=== PATIENT | male | born 1965 | race Caucasian/White ===

== ENCOUNTER → 2021-08-20 10:31 | Outpatient (BNVA) | payer MEDICARE, SELFPAY | PROVIDERS: Visit Provider Surgery | DX: Z20.822 Contact with and (suspected) exposure to COVID-19 (principal); Z11.52 Encounter for screening for COVID-19 | CPT/HCPCS: 87635 ==

== ENCOUNTER 2021-08-23 08:46 | Day surgery (SDC) | payer MEDICARE, SELFPAY ==
[2021-08-22 10:46] VITALS: BMI 24.9
[2021-08-23] VITALS (8 sets, daily range): BP systolic 125–147; BP diastolic 73–93; PULSE 51–83; RESP 14–18; TEMP 36.1–36.7; O2SAT 94–100
--- NOTE | 2021-08-23 09:17 | W.PM.OPSUD ---
Surgery/Procedure H&P Update DATE OF PROCEDURE: August 23, 2021 DATE H&P PERFORMED: 08/14/21 H&P UPDATE INFORMATION: I have reviewed H&P completed within last 30 days, I have examined patient prior to procedure and No changes to prior documentation PLANNED PROCEDURE: Operation Date: 08/23/21 10:10 Proposed Procedures p Laparoscopic poss Open Inguinal Hernia Repair [id number] K40.90(Not Applicable) - Anthony Casanova MD
[2021-08-23] MEDS: sodium chloride 0.9% 1,000 ML 30 ML IV (09:54)
--- NOTE | 2021-08-23 09:56 | ANES.PREANE2 ---
Pre-Anesthetic Assessment Pre-Anesthetic Assessment: Height/Weight: Height 1.73 m Weight 74.389 kg Temp Pulse Resp BP Pulse Ox 97.8 F 83 18 125/82 98 08/23/21 09:29 08/23/21 09:29 08/23/21 09:29 08/23/21 09:29 08/23/21 09:29 Preop Diagnosis: inguinal hernia Proposed Procedure: Operation Date: 08/23/21 10:10 Proposed Procedures p Laparoscopic poss Open Inguinal Hernia Repair 07196 K40.90(Not Applicable) - Anthony Casanova MD Familial anesthetic complications: None Was Beta Francesca taken within 24 hours: N/A Was Clonidine taken within 24 hours: N/A Last intake: Intake Last Liquid Date 08/22/21 Last Liquid Time 22:00 Last Solid Date 08/22/21 Last Solid Time 18:30 Social: Social History: No alcohol and No tobacco Exam: Pre-Anes Outpt Exam: alert, oriented x 3, clear to auscultation bilaterally and regular rate & rhythm Airway: MP: 1 Dentition: Full Additional comments: full khan Pulmonary: Pulmonary: Asthma (childhood asthma) CV/HEM: CV/HEM: HTN Musc/skel: Musc/skel: Lower Back Pain (prevents from achieving 4 METS) Neuropsych: Neuropsych: Neuropathy Anesthetic Plan: ASA status: 3 Anesthesia: General Risk of > 500 ml blood loss (7ml/kg in children): No Medications/Allergies Current Medications: Current Medications Generic Name Dose Route Start Last Admin Trade Name Freq PRN Reason Stop Dose Admin Sodium Chloride 1,000 mls @ 30 ml s/hr 08/23/21 09:30 08/23/21 09:54 Sodium Chloride 0.9% IV 08/24/21 09:29 30 mls/hr .Q24H TOBI Administration PFSH Anesthesia PFSH: Medical History (Updated 08/14/21 @ 13:36 by Anthony Casanova MD) CVA (cerebral vascular accident) Depression History of cataract Hypertension Osteoarthritis of spine RLS (restless legs syndrome) Surgical History (Updated 08/14/21 @ 13:36 by Anthony Casanova MD) H/O neck surgery History of hip surgery left Hx of cataract surgery Social History Smoking and tobacco status: former smoker Data Anesthesia Cardiac Studies: No Data to Display
[2021-08-23] MEDS: vancomycin 1,000 MG in sodium chloride 0.9% 250 ML 250 MG IV (10:42)
--- NOTE | 2021-08-23 11:53 | PM.OP ---
Operative Report Date of procedure: August 23, 2021 Pre-op Diagnosis: Left inguinal hernia Post-op Diagnosis: Left indirect inguinal hernia Procedure Done: Laparoscopic total extraperitoneal repair of left indirect inguinal hernia with Surgimax 3D mesh measuring 16 x 10 cm Pathology: none sent Surgeon: Anthony Casanova Anesthesia: General Condition: stable Disposition: PACU Procedure: The patient was taken to the operating room. After IV antibiotic was administered, the abdomen was prepped and draped in a sterile manner. Using a 15 blade, a 1.0 cm transverse incision was made infraumbilically on the left side. Subcutaneous tissue was divided using electrocautery and the anterior rectus sheath divided using an 11 blade. The rectus muscle was retracted laterally and the extraperitoneal space identified. A 11 mm port was placed and 12 mm of pneumoperitoneum was created. A 10 mm 30? scope was introduced and the retrorectus space was opened using the camera up to the pubic symphysis and 5 mm ports were placed in the midline, one 2-fingerbreadths above the pubic symphysis and the other midway between these two ports under direct visualization. Blunt dissection was carried out to open up the tissue in the midline and to the pubic symphysis, which was identified. The dissection was then carried laterally where the iliopubic tract was identified. There was no femoral, obturator or direct hernia noted. The inferior epigastric artery was identified and dissection was carried posterior to it and laterally, the space was opened up to the level of the umbilicus superior to the anterior superior iliac spine. I then proceeded to dissect out the spermatic cord and the indirect hernial sac was reduced . 16 x 10cm Surgimax 3D mesh was rolled and introduced through the 10 mm port and then rolled laterally and apposed well against the abdominal wall to cover the myopectineal orifice completely. 10 Cc of 0.5% Marcaine was infiltrated into the preperitoneal space. The extraperitoneal space was desufflated under direct visualization to ensure no slippage of hernial sac under the mesh. All ports were removed, the anterior rectus fascia at the infraumbilical port closed using figure of eight 0 Vicryl sutures, subcutaneous tissue approximated using 3-0 Vicryl sutures and skin at all three port sites were closed using running subcuticular 4-0 Monocryl sutures and Dermabond. 10 mL of 0.5% Marcaine was infiltrated at the port sites. The patient was stable throughout the procedure.
[2021-08-23] MEDS: HYDROcodone-acetaminophen 5-325 mg Tablet 1 TAB PO (13:46)
--- NOTE | 2021-08-23 13:50 | SUR.PHASEII ---
no redness or drainage noted from surgical sites.
--- NOTE | 2021-08-23 16:17 | ANE.PACU2 ---
Inpatient post-anesthesia follow up: Airway intact: Yes Vital signs: Temperature 98.0 F Pulse Rate 58 Respiratory Rate 16 Blood Pressure 131/83 Pulse Oximetry 96 Oxygen Delivery Me thod Room Air Oxygen Flow Rate 6 Fraction of Inspir ed Oxygen Hydration adequate: Yes Nausea and vomiting: No Pain level: 2 Mental status: Baseline
== END 2021-08-23 14:05 | disposition home or self-care (01) ==
PROVIDERS: PCP Family Medicine; Visit Provider Surgery
PROC: (CPT 49650; principal; 2021-08-23 10:10)
DX: K40.90 Unilateral inguinal hernia, without obstruction or gangrene, not specified as recurrent (principal); I10 Essential (primary) hypertension; Z86.73 Personal history of transient ischemic attack (TIA), and cerebral infarction without residual deficits; Z87.891 Personal history of nicotine dependence
CPT/HCPCS: 49650; C1781; J1100; J1170; J1200; J2405; J2704; J2710; J3010; J3370; J3490; J7030; J7050

== ENCOUNTER → 2021-09-04 14:54 | Outpatient (BNVA) | payer MEDICARE, SELFPAY | PROVIDERS: PCP Family Medicine; Referring Provider Surgery; Visit Provider Anesthesiology Pain Medicine | DX: M54.50 Low back pain, unspecified (principal); M79.606 Pain in leg, unspecified; Z79.891 Long term (current) use of opiate analgesic | CPT/HCPCS: 99202 ==

== ENCOUNTER → 2023-03-27 10:13 | Outpatient (BNVA) | payer MEDICARE, SELFPAY | PROVIDERS: PCP Family Medicine; Visit Provider Student in an Organized Health Care Education/Training Program | DX: M75.41 Impingement syndrome of right shoulder | CPT/HCPCS: 20610; 73030; 99203; J3301 ==

== ENCOUNTER → 2024-11-24 15:17 | Outpatient (BNVA) | payer MEDICARE, SELFPAY | PROVIDERS: PCP Family Medicine; Visit Provider Student in an Organized Health Care Education/Training Program | DX: M75.41 Impingement syndrome of right shoulder (principal) | CPT/HCPCS: 20610; 73030; 99214; J3301; J9999 ==

== ENCOUNTER 2024-11-29 10:38 | Outpatient (CLI) | payer MEDICARE, SELFPAY ==
--- NOTE | 2024-11-29 11:00 | MR_ITS ---
WS: [id number] MRI RIGHT SHOULDER NONCONTRAST TECHNIQUE: Sagittal T2, coronal T1, T2 and proton density imaging. Axial gradient PDE imaging. CLINICAL INFORMATION: shoulder pain COMPARISON: None. FINDINGS: Moderate to advanced arthritis AC joint. Moderate narrowing of the subacromial space. Small amount of subacromial and subdeltoid fluid. Impingement on the supraspinatus. Tendinopathy distal supraspinatus.Chronic appearing thinning of the infraspinatus and supraspinatus which appear intact. Normal teres minor. Tendinopathy subscapularis tendon. I Intra-articular biceps tendon partially torn proximally as it exits the bicipital groove with medial subluxation. Intrasubstance tear of the intra- articular biceps tendon with tendinopathy. Advanced narrowing at the glenohumeral articulation. MR/MR shoulder RT wo con* [id number] IMPRESSION: 1. Moderate to advanced arthritis AC joint. 2. Supraspinatus and infraspinatus appear intact with chronic thinning and ten dinopathy. Suggestion of calcific tendinitis distally. 3. Tendinopathy subscapularis tendon. 4. Intrasubstance tear of the biceps tendon as it exits the bicipital groove e xtending into the intra-articular biceps tendon. Medial subluxation of the prox imal biceps tendon.
== END 2024-11-29 10:39 | disposition home or self-care (01) ==
LOC: RAD 10:43
PROVIDERS: PCP Family Medicine; Visit Provider Student in an Organized Health Care Education/Training Program
DX: M75.41 Impingement syndrome of right shoulder (principal); M19.011 Primary osteoarthritis, right shoulder; M67.813 Other specified disorders of tendon, right shoulder; S46.211A Strain of muscle, fascia and tendon of other parts of biceps, right arm, initial encounter; X58.XXXA Exposure to other specified factors, initial encounter; R93.7 Abnormal findings on diagnostic imaging of other parts of musculoskeletal system
CPT/HCPCS: 73221

== ENCOUNTER → 2024-12-22 10:50 | Outpatient (BNVA) | payer MEDICARE, SELFPAY | PROVIDERS: PCP Family Medicine; Visit Provider Student in an Organized Health Care Education/Training Program | DX: M75.41 Impingement syndrome of right shoulder (principal); M75.21 Bicipital tendinitis, right shoulder; M75.31 Calcific tendinitis of right shoulder; M19.011 Primary osteoarthritis, right shoulder | CPT/HCPCS: 99214 ==

== ENCOUNTER 2025-02-10 08:50 | Day surgery (SDC) | payer MEDICARE, SELFPAY ==
[2025-02-10] VITALS (9 sets, daily range): BP systolic 116–146; BP diastolic 72–93; PULSE 48–84; RESP 16–18; TEMP 36.1–36.7; O2SAT 94–98; BMI 22.0
--- NOTE | 2025-02-10 09:30 | ANES.PREANE2 ---
Pre-Anesthetic Assessment Height/Weight: Height 1.73 m Preop Diagnosis: Right Shoulder Pain Operation Date: 02/10/25 11:25 Proposed Procedures p Shoulder Arthroscopy(Right) - DO stewart Chan Subacromial Decompression(Right) - DO stewart Chan AC Joint Resection(Right) - DO stewart Chan Bicep Tenotomy(Right) - DO stewart Chan POSSIBLE Rotator Cuff Debridement Versus Repair(Right) - Son Crawford DO Familial anesthetic complications: none Was Beta Francesca taken within 24 hours: N/A Was Clonidine taken within 24 hours: N/A Social No alcohol and No tobacco Chewing tobacco and Marijuana Exam alert, oriented x 3, clear to auscultation bilaterally and regular rate & rhythm Airway Submandibular: within normal limits Cervical ROM: within normal limits Mallampati: Class II Dentition: full History/ROS No significant history except as noted and No significant complaints Pulmonary None reported CV/HEM None reported None reported Hepatic None reported GI None reported Metabolic None reported Musc/skel None reported Neuropsych None reported Anesthetic Plan ASA status: 2 Anesthesia: General and Regional (specify below) (Interscalene Block (Right)) Risk of > 500 ml blood loss (7ml/kg in children): No Medications/Allergies Home Medications ?Medication ?Instructions ?Recorded ?Confirmed ?Last Taken ?Type gabapentin 600 mg tablet 600 mg PO TID 08/14/21 02/09/25 02/10/25 History lisinopril 10 mg tablet 10 mg PO DAILY 08/14/21 02/10/25 08/22/21 History docusate sodium 100 mg capsule 100 mg PO BID #30 caps 08/23/21 02/09/25 Unknown Rx (Colace) hydrocodone 5 mg-acetaminophen 325 1 tab PO Q6H PRN pain #20 tabs 08/23/21 02/09/25 02/05/25 Rx mg tablet diclofenac potassium 25 mg capsule 25 mg PO BID 03/27/23 02/09/25 02/09/25 History tizanidine 4 mg capsule 4 mg PO BID PRN Muscle Spasm 03/27/23 02/09/25 Unknown History Allergies Allergy/AdvReac Type Severity Reaction Status Date / Time Penicillins Allergy Intermediate rash, Verified 12/22/24 10:59 PFSH Anesthesia Medical History (Updated 12/26/24 @ 22:56 by Son Crawford DO) Osteoarthritis of spine RLS (restless legs syndrome) History of cataract Hypertension Depression CVA (cerebral vascular accident) Surgical History Status post left inguinal hernia repair (08/23/21) Laparoscopic TEP H/O neck surgery History of hip surgery left Hx of cataract surgery Social History Smoking and tobacco/nicotine status: current every day tobacco/nicotine user (chews)
[2025-02-10] MEDS: acetaminophen 1,000 MG/100 ML PIGGYBACK 400 MG IV (09:36)
--- NOTE | 2025-02-10 10:07 | ANES.PROC ---
Anesthesia Procedures Procedure/Date: 02/10/25 Nerve Block ^: Nerve Block 1: Main Anesthesia: general anesthesia Time Out Performed: Yes Consent: requested by attending/covering physician, from patient, risks and benefits reviewed and patient agrees to proceed Nerve block location: interscalene Anesthesia monitors applied: pulse oximetry, EKG, BP cuff and oxygen Nerve block position: semi sitting Anesthetic Used: ropivicaine 0.5% and with decadron Amount of anesthesia used (mL): 20 (Decadron 4 mg) Ultrasound used to: recognize landmarks, visualize and ID brachial plexus and visualize and ID interscalene groove Nerve Stimulator Used?: Yes Interscalene/Femoral BLK: 2 stimuplex 22 g needle used for position and inplane approach, visualize local anesthetic spread and no vascular puncture identified Injection: neg aspiration of heme and paresthesia +/- (none) Patient Tolerated Procedure: well and no complications Complications: none Additional Comments: Versed 2 mg for block in pre-op
--- NOTE | 2025-02-10 10:13 | W.PM.OPSFHP ---
Same Day Surgery H&P Indication for Procedure/HPI DATE OF PROCEDURE: February 10, 2025 CHIEF COMPLAINT/INDICATIONFOR SURGICAL PROCEDURE: Right shoulder bicep tendinitis/tear, AC joint arthritis, subacromial impingement syndrome, rotator cuff partial tear PREOP DIAGNOSIS: Right biceps tendinitis/tear, AC joint arthritis, subacromial pigeon syndro PLANNED PROCEDURE: Operation Date: 02/10/25 11:25 Proposed Procedures p Shoulder Arthroscopy(Right) - Son Crawford DO s Subacromial Decompression(Right) - Son Crawford DO s AC Joint Resection(Right) - Son Crawford DO s Bicep Tenotomy(Right) - Son Crawford, s POSSIBLE Rotator Cuff Debridement Versus Repair(Right) - Son Crawford DO Medications/Allergies* Home Medications ?Medication ?Instructions ?Recorded ?Confirmed ?Type gabapentin 600 mg tablet 600 mg PO TID 08/14/21 02/09/25 History lisinopril 10 mg tablet 10 mg PO DAILY 08/14/21 02/10/25 History diclofenac potassium 25 mg capsule 25 mg PO BID 03/27/23 02/09/25 History tizanidine 4 mg capsule 4 mg PO BID PRN Muscle Spasm 03/27/23 02/09/25 History Allergies/Adverse Reactions Allergy/AdvReac Type Severity Reaction Status Date / Time Penicillins Allergy Intermediate rash, Verified 12/22/24 10:59 Current Medications: Generic Name Dose Route Start Last Admin Trade Name Freq PRN Reason Stop Dose Admin Sodium Chloride 1,000 mls @ 30 mls/hr 02/10/25 09:15 02/10/25 09:35 Sodium Chloride 0.9% IV 02/11/25 09:14 30 mls/hr .Q24H TOBI Administration Pertinent History/Comorbid Conditions* Medical History (Updated 12/26/24 @ 22:56 by Son Crawford DO) Osteoarthritis of spine RLS (restless legs syndrome) History of cataract Hypertension Depression CVA (cerebral vascular accident) Surgical History (Updated 09/05/21 @ 08:14 by Anthony Casanova MD) Status post left inguinal hernia repair (08/23/21) Laparoscopic TEP H/O neck surgery History of hip surgery left Hx of cataract surgery Social History Smoking and tobacco/nicotine status: current every day tobacco/nicotine user (chews) Pertinent Exam Findings alert, oriented x 3, operative site marked and procedure specific exam findings Please refer to detailed examination on 12/22/2024 listed below: Right Shoulder exam: C-Spine ROM:no pain Spurlings:neg ROM: Passive 180 Active 140 TTP anterior lateral and posterior shoulder, AC joint Internal Rotation 4/5 External Rotation 4/5 O'Briens: Positive Jobes: Positive Chawla Impingement: Positive Speeds Test: Positive Crossover/Neers test:Positive Recommendations Risks and benefits of procedure reviewed and Patient/family agree to proceed Surgery/Procedure today Other Plans: Plan to proceed to the OR today for right shoulder diagnostic and surgical arthroscopy with subacromial decompression, AC joint resection, biceps tenotomy, possible rotator cuff debridement versus repair. Patient understands the ins and outs of procedure the risk benefits complication alternatives with surgery through shared decision-making patient like to proceed with surgical invention. All questions answered at this time Coding Level of Care Code Acute Code for Lazara Grant
--- NOTE | 2025-02-10 11:56 | W.PM.BPON ---
Date of Procedure: 02/10/2025 Surgeon: Son Crawford DO Sanitation Manager(s): Sung Crawford PA-C Procedure(s) performed: Right shoulder diagnostic and surgical arthroscopy with biceps tenotomy Right shoulder diagnostic and surgical arthroscopy with labral debridement Right shoulder diagnostic and surgical arthroscopy with rotator cuff debridement Right shoulder diagnostic and surgical arthroscopy with AC joint resection (distal clavicle excision) Right shoulder diagnostic and surgical arthroscopy with subacromial decompression (bursectomy/acromioplasty) Findings of the procedure(s): Patient underwent procedure as planned without issues or complications. Estimated blood loss: 5 mL Specimen(s) removed: None Post-operative diagnosis: Right shoulder biceps tendon tear with superior labral tearing, circumferential labral fraying, partial rotator cuff tearing, AC joint arthritis, subacromial impingement
--- NOTE | 2025-02-10 11:58 | P.OP_ITS ---
Operative Report Date of procedure: February 10, 2025 Surgeon: Son Crawford DO Radio Disc Jockey: Sung Crawford PA-C: PA was necessary for assistance in this case with shoulder positioning to execute the procedure, assistance with instrumentation, as well as implant fixation when necessary, assist with wound closure and dressing application. Procedure: Preoperative diagnosis: Right shoulder bicep tendinitis/tear, AC joint arthritis, subacromial impingement syndrome, rotator cuff partial tear Post-op diagnosis: Right shoulder biceps tendon tear with superior labral tearing, circumferential labral fraying, partial rotator cuff tearing, AC joint arthritis, subacromial impingement Procedure done: Right shoulder diagnostic and surgical arthroscopy with biceps tenotomy Right shoulder diagnostic and surgical arthroscopy with labral debridement Right shoulder diagnostic and surgical arthroscopy with rotator cuff debridement Right shoulder diagnostic and surgical arthroscopy with AC joint resection (distal clavicle excision) Right shoulder diagnostic and surgical arthroscopy with subacromial decompression (bursectomy/acromioplasty) Surgeon: Son Crawford DO Estimated blood loss: 5mL IV fluids: 1000 mL Implants: None Complications: None Condition: stable Disposition: same day Brief History: Patient been seen and worked up in the outpatient setting for?right?shoulder?pain.? Pt had an MRI which showed findings below.? Patient's failed conservative treatment and has weakness.? We talked about treatment options far as nonoperative and operative intervention.? We talked about risk benefits complication alternatives surgical nonsurgical treatment options.? Understanding risk of surgery he agrees to proceed with surgical intervention.? All questions have been answered at this time.? Patient elects proceed with surgery and consent obtained in preoperative holding area for right shoulder diagnostic and surgical arthroscopy with subacromial decompression, AC joint resection, biceps tenotomy, possible rotator cuff debridement versus repair.. MR/MR shoulder RT wo con* [id number] IMPRESSION: 1. Moderate to advanced arthritis AC joint. 2. Supraspinatus and infraspinatus appear intact with chronic thinning and tendinopathy. Suggestion of calcific tendinitis distally. 3. Tendinopathy subscapularis tendon. 4. Intrasubstance tear of the biceps tendon as it exits the bicipital groove extending into the intra-articular biceps tendon. Medial subluxation of the proximal biceps tendon. Procedure: Patient seen evaluated in the preoperative holding area.? Consent reviewed and signed with patient.? Once again reviewed patient's MRI results as well as? planned surgical intervention.? Correct extremity marked.? Patient seen evaluated by anesthesia department received regional anesthesia.? Once ready for surgery was taken back to the operative suite.? Patient then subsequently underwent anesthesia per the anesthesia department was transported onto the OR table.? Patient was then placed into a lateral decubitus position with a beanbag and was appropriately secured to the bed.? All bony prominences well-padded.? Patient then had the?right?upper extremity was then prepped and draped in standard orthopedic fashion.? Patient received appropriate preoperative antibiotics.? Final timeout performed. The?right?upper extremity was then held in hanging from traction utilizing sterile technique.? Next started with standard diagnostic and surgical arthroscopy with posterior portal position introduced arthroscope into the glenohumeral joint.? Visualized the glenohumeral joint I then introduced a spinal needle within the rotator cuff interval to confirm appropriate anterior portal placement.? Once this was confirmed I then made my small incision and then introduced my arthroscopic shaver into the glenohumeral joint.? After thorough debridement was clearly evident patient had a significant erythema as well as positive liftoff sign of the biceps anchor and biceps tendon tearing and fraying as it was pulled within the joint.? Decision at this time was made to perform a biceps tenotomy for less restrictions postoperatively as previous discussed with patient.? Introduced a thermal wand and a biceps tenotomy was performed to completion With appropriate release.? Next I evaluated the subscapularis tendon which was intact and no evidence of full-thickness tear, patient had just some partial fraying which was gently debrided subscapularis tendon was intact with appropriate tension. ?Next there was significant labral tearing at biceps anchor and circumferential.? ? I then subsequently utilized a a arthroscopic shaver and thermal wand to perform a labral debridement.? This point time I then visualized the glenohumeral joint.? The glenohumeral joint was found to have grade 2? chondromalacia throughout.? Axillary pouch was free of loose bodies from viewing the posterior portal.? The undersurface of the supraspinatus had some thinning and fraying roughly 15% in the intra-articular space this was gently debrided. This completed my work within the glenohumeral joint all fluid was suctioned free of the joint.? ?Next I reintroduced the arthroscope posteriorly.? And went to the subacromial space.?Thermal wand was then introduced laterally and then I subsequently performed extensive bursectomy of the subacromial space.? Patient had a large anterior bone spur.? At this point time I proceeded with my AC joint resection thermal wand was used and track to the anterior edge of the acromion and then tr acked all the way to the AC joint.? Once identified the AC joint this was very arthritic in nature.? Thermal wand was placed anteriorly to establish appropriate plane for AC joint resection.? Once appropriate margins and anterior inferior and anterior capsule was released I then introduced arthroscopic shaver and a bur/power rasp and performed AC joint resection of both the acromion to cope plane at the AC joint and a distal clavicle resection was then performed totaling 1 cm in size and was confirmed.? This completed my AC joint resection and I then introduced the arthroscopic shaver laterally while continuing to view posteriorly.? I then performed an acromioplasty to complete my subacromial decompression. At this point time attention was turned towards the bursal side of the rotator cuff I utilized arthroscopic shaver to perform a complete bursectomy to have direct visualization rotator cuff I then took the shoulder through range of motion and there is no evidence of bursal sided rotator cuff tear as a result the rotator cuff had no tear requiring no repair.? ?Next I then introduced the arthroscopic shaver posteriorly to complete my subacromial decompression appropriate complaining all the way up to the lateral edge of the acromion.? This completed the surgery.? All fluid was suctioned from the?shoulder.? All instruments were removed.? The lateral incision was then closed with nylon stitches.? As well as the portal sites closed with portal nylon stitches.? Xeroform 4 x 4's ABD and tape was then applied to the?right?shoulder?and was placed into a?shoulder sling.? Patient was then awakened from anesthesia and then taken back to PACU in stable condition.? Patient tolerated procedure without any issues. Disposition: Patient taken back in stable condition recovering well.? Dressings on in place clean dry and intact.? Will be nonweightbearing to the?right?upper extremity. Patient to follow-up with orthopedics in the office in 2 weeks.? Patient will receive appropriate discharge instruction as well as pain medication postoperatively.? All questions answered.? We will contact the office for any questions or concerns.
--- NOTE | 2025-02-10 12:15 | PM.PACU ---
PACU note Narrative: pt is 59 y/o male that just underwent right shoulder arthroscopy. Patient transferred to PACU in stable condition. Pain is well controlled. shoulder Dressing on , dry and in place. Patient's operative arm is in a shoulder immobilizer. Patient is awake and alert and able to respond to my questions accordingly. Patient's fingers are warm with good perfusion. Normal cap refill under 2 seconds. Unable to assess further motion or sensation due to residual block Exam: awake Disposition: discharged
--- NOTE | 2025-02-10 13:57 | ANE.PACU2 ---
Inpatient post-anesthesia follow up: Airway intact: Yes Vital signs: Temperature 97.3 F Pulse Rate 50 Respiratory Rate 18 Blood Pressure 131/80 Pulse Oximetry 94 Oxygen Delivery Me thod Room Air Oxygen Flow Rate Fraction of Inspir ed Oxygen Hydration adequate: Yes Nausea and vomiting: No Pain level: 1 Mental status: Baseline
== END 2025-02-10 13:25 | disposition home or self-care (01) ==
PROVIDERS: PCP Family Medicine; Visit Provider Student in an Organized Health Care Education/Training Program
PROC: (CPT 29805; principal; 2025-02-10 11:25)
PROC: (CPT 29826; 2025-02-10 11:25)
PROC: 0RSG0ZZ Reposition Right Acromioclavicular Joint, Open Approach (ICD-10-PCS; CPT 29828; 2025-02-10 11:25)
PROC: (CPT 24310; 2025-02-10 11:25)
PROC: (CPT 29827; 2025-02-10 11:25)
DX: S43.431A Superior glenoid labrum lesion of right shoulder, initial encounter (principal); X58.XXXA Exposure to other specified factors, initial encounter; M19.011 Primary osteoarthritis, right shoulder; M75.41 Impingement syndrome of right shoulder; I10 Essential (primary) hypertension; F32.A Depression, unspecified; Z86.73 Personal history of transient ischemic attack (TIA), and cerebral infarction without residual deficits; F17.220 Nicotine dependence, chewing tobacco, uncomplicated
CPT/HCPCS: 29828; 29824; 29823; J0131; J0169; J1100; J1885; J2250; J2405; J2704; J2795; J3010; J3490; J7030; J9999

== ENCOUNTER → 2025-02-25 09:10 | Outpatient (BNVA) | payer MEDICARE, SELFPAY | PROVIDERS: PCP Family Medicine; Visit Provider Physician Assistant | DX: Z98.890 Other specified postprocedural states (principal) | CPT/HCPCS: 99024 ==

== ENCOUNTER → 2025-05-26 09:09 | Outpatient (BNVA) | payer MEDICARE, SELFPAY | PROVIDERS: PCP Family Medicine; Visit Provider Physician Assistant | DX: Z98.890 Other specified postprocedural states (principal) | CPT/HCPCS: 99024 ==